=== PATIENT | male | born 1950 | race Two or more races ===

== ENCOUNTER 2018-08-06 04:22 | Emergency (ER) | payer OTHER, MEDICARE ==
[~2018-08-06] VITALS: Ht 157.5 cm; Wt 81.6 kg
[2018-08-06 04:33] VITALS: BP 150/90
[2018-08-06 06:06] LABS: Urine Bacteria FEW /hpf (None Seen); Urine Blood 1+ /uL (Negative); Urine Hyaline Cast FEW /lpf (0 - 2); Urine Mucus FEW (None Seen); Urine Specific Gravity 1.023 (1.001-1.035); Urine WBC 1 /hpf (0 - 3)
== END 2018-08-06 07:36 | disposition home or self-care (01) ==
LOC: ER 04:22
DX: N39.0 Urinary tract infection, site not specified (principal)
CPT/HCPCS: 81001